=== PATIENT | female | born 1960 | race Caucasian/White ===

== ENCOUNTER 2017-10-22 17:43 | Inpatient (IN) | END 2017-10-23 17:00 | disposition home or self-care (01) | DRG 185 ==

== ENCOUNTER 2017-11-15 22:15 | Inpatient (IN) | END 2017-11-19 20:38 | disposition home or self-care (01) | DRG 187 ==

== ENCOUNTER → 2018-01-17 | Day surgery (SDC) | END | disposition home or self-care (01) ==